=== PATIENT | female | born 1980 | race Caucasian/White ===

== ENCOUNTER 2024-12-24 06:53 | Day surgery (SDC) | payer BC, OTHER ==
[~2024-12-24 06:53] MED LIST: Sodium Chloride 0.9% 10 ML Syringe FLUSH PRN
[2024-12-24] MEDS ORDERED: Rocuronium 100 MG/10 ML MDV IV ONE (06:54)
[2024-12-24] MEDS ORDERED: fentaNYL 100 MCG/2 ML SDV IV ONE (06:54)
[2024-12-24] MEDS ORDERED: Propofol 200 MG/20 ML SDV IV ONE (06:54)
[2024-12-24] MEDS ORDERED: Dexamethasone 4 MG/ML 5 ML MDV IVPUSH ONE (06:54)
[2024-12-24] MEDS ORDERED: Ondansetron 4 MG/2 ML SDV IVPUSH ONE (06:54)
[2024-12-24] MEDS ORDERED: diphenhydrAMINE 50 MG/ML SDV IVPUSH ONE (06:54)
[2024-12-24] MEDS ORDERED: HYDROmorphone 2 MG/ML SDV IV ONE (06:54)
[2024-12-24] MEDS ORDERED: Sugammadex Sodium 200 MG/2 ML VIAL IV ONE (06:54)
[2024-12-24] MEDS ORDERED: Midazolam 1 MG/ML 2 ML SDV IV ONE (06:54)
[2024-12-24] MEDS ORDERED: Lidocaine 1% PF 2 ML SDV IV ONE (06:54)
[2024-12-24] MEDS: Lactated Ringers 1,000 ML IV SCH (07:51)
[2024-12-24] MEDS: Acetaminophen 500 MG Tab PO ONE (07:58)
[2024-12-24] MEDS: Gabapentin 300 MG Cap PO ONE (07:59)
[2024-12-24] MEDS: Bupivacaine 0.5% 50 ML MDV INJECT ONE (09:45)
== END 2024-12-24 12:23 | disposition home or self-care (01) ==
LOC: FB.SDS 06:53
PROVIDERS: ATTEND Surgery
DX: K80.10 Calculus of gallbladder with chronic cholecystitis without obstruction (principal); G43.909 Migraine, unspecified, not intractable, without status migrainosus; Z79.899 Other long term (current) drug therapy
CPT/HCPCS: 00790; 47562; 88304; A9270; J0665; J1100; J1171; J1200; J2003; J2250; J2405; J2704; J3010; J7120